=== PATIENT | female | born 1980 | race Two or more races ===

== ENCOUNTER 2019-02-24 | Emergency (ER) | payer OTHER ==
[2019-02-24] MEDS ORDERED: PREGABALIN 100 MG CAPSULE PO SCH ×2 (00:40→10:00)
[2019-02-24] MEDS ORDERED: BACLOFEN 20 MG TABLET PO SCH ×2 (00:40→10:00)
[2019-02-24] MEDS ORDERED: OXYBUTYNIN CHLORIDE 5 MG TABLET PO SCH ×2 (00:41→10:00)
[2019-02-24] MEDS ORDERED: QUETIAPINE FUMARATE 100 MG TABLET PO SCH ×2 (00:42→22:00)
--- NOTE | 2019-02-24 00:52 | ER Document Report ---
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 The patient questions whether or not she may have a UTI, but she denies any fever or vomiting or back pain. The patient also reports some skin breakdown to her sacral region that she has been placing barrier cream upon. She denies any change in her T4 paraplegia neurologic symptoms. No headache or cough or chest pain or difficulty breathing. - Related Data Allergies/Adverse Reactions: No Known Allergies Allergy (Unverified 02/24/19 02:27) Past Medical History - General Information source: Patient - Social History Smoking Status: Unknown if Ever Smoked Frequency of alcohol use: None Drug Abuse: Other - Prior IV drug use, none currently Lives with: Family Family History: Reviewed & Not Pertinent Patient has suicidal ideation: No Patient has homicidal ideation: No Review of Systems - Review of Systems -: Yes All other systems reviewed and negative Physical Exam - Vital signs Vitals: Temp Pulse Resp BP Pulse Ox 97.9 F 55 L 16 126/61 H 100 02/24/19 00:08 02/24/19 00:08 02/24/19 00:08 02/24/19 00:08 02/24/19 00:08 - Notes Notes: PHYSICAL EXAMINATION: GENERAL: Well-appearing, well-nourished and in no acute distress. HEAD: Atraumatic, normocephalic. EYES: Pupils equal round and reactive to light, extraocular movements intact, conjunctiva are normal. ENT: Nares patent, oropharynx clear without exudates. Moist mucous membranes. NECK: Normal range of motion, supple without lymphadenopathy LUNGS: Breath sounds clear to auscultation bilaterally and equal. No wheezes rales or rhonchi. HEART: Regular rate and rhythm without murmurs ABDOMEN: Soft, nontender, nondistended abdomen. No guarding, no rebound. No masses appreciated. Female : deferred Musculoskeletal: Normal range of motion, no pitting or edema. No cyanosis. NEUROLOGICAL: T4 paralysis that is chronic. No acute findings. PSYCH: Normal mood, normal affect. SKIN: Warm, Dry, normal turgor, no rashes or lesions noted. Patient has a stage II decubitus over the sacral region measures about 2 x 2 cm. No active evidence for infection. Course - Re-evaluation Re-evalutation: 02/24/19 00:53 Patient requested and was given her usual medications with Lyrica 150 mg twice daily, baclofen 20 mg 4 times daily, oxybutynin 5 mg 4 times daily and Seroquel 100 mg nightly. 02/24/19 03:50 Patient will be treated with Bactrim antibiotic and will be given a prescription for Bactrim. The patient will have every 6 hour in and out catheterizations to decompress her bladder and barrier cream to her gluteal region. All of this is been passed on to the law enforcement staff that is watching her. Patient is awaiting transfer to another skilled nursing facility in the morning. There is a question as to whether or not she needs to go to [place] skilled nursing for her care given her medical issues. This issue has been discussed in detail with law enforcement also. - Vital Signs Vital signs: Temp Pulse Resp BP Pulse Ox 97.9 F 55 L 16 126/61 H 100 02/24/19 00:08 02/24/19 00:08 02/24/19 00:08 02/24/19 00:08 02/24/19 00:08 - Laboratory Laboratory results interpreted by me: 02/24/19 01:08 Urine Protein 30 H Urine Blood MODERATE H Urine Nitrite POSITIVE H Urine Urobilinogen 2.0 H Ur Leukocyte Esterase MODERATE H Discharge - Discharge Clinical Impression: Paraplegia at T4 level Decubital ulcer Qualifiers: Pressure injury location: sacral region Pressure injury stage: stage 2 Qualified Code(s): L89.152 - Pressure ulcer of sacral region, stage 2 Urinary tract infection Qualifiers: Urinary tract infection type: acute cystitis Hematuria presence: without hematuria Qualified Code(s): N30.00 - Acute cystitis without hematuria Condition: Stable Disposition: HOME, SELF-CARE Instructions: Trimethoprim-Sulfa ([facility]), Urinary Tract Infection ([facility]), Decubitus Ulcer ([facility]) Additional Instructions: Patient will need catheterization for urinary retention performed every 6 hours. The patient will also need barrier cream upon her stage II gluteal decubitus and will need steps taken to prevent further pressure upon the area by having her alternate placing her weight on one side or the other or limiting her time in a wheelchair. Follow-up with skilled nursing nursing staff and practitioner. Prescriptions: Sulfamethoxazole/Trimethoprim [Bactrim Ds Tablet] 1 each PO BID #16 tablet
[2019-02-24 01:33] LABS: APPEARANCE,URINE SLIGHTLY-CLOUDY; BILIRUBIN,URINE NEGATIVE (NEGATIVE); COLOR,URINE YELLOW; GLUCOSE, URINE NEGATIVE (NEGATIVE); KETONES,URINE NEGATIVE (NEGATIVE); LEUKOCYTE ESTERASE,URINE MODERATE (NEGATIVE); NITRITE,URINE POSITIVE (NEGATIVE); PROTEIN,URINE 30 mg/dL (NEGATIVE); URINE SPECIFIC GRAVITY 1.025
[2019-02-24] MEDS ORDERED: CEFTRIAXONE INJ 1000 MG VIAL IM ONE (02:19)
[2019-02-24] MEDS ORDERED: SULFAMETHOXAZOLE/TRIMETHOPRIM 800-160 MG TABLET PO ONE (02:20)
[2019-02-24 07:27] VITALS: BP 112/70
[2019-02-24] MEDS ORDERED: OXYBUTYNIN CHLORIDE 5 MG TABLET PO ONE (07:45)
[2019-02-24] MEDS ORDERED: BACLOFEN 20 MG TABLET PO ONE (07:45)
[2019-02-24] MEDS ORDERED: PREGABALIN 75 MG CAPSULE PO ONE (07:45)
== END 2019-02-24 07:40 | disposition home or self-care (01) ==
LOC: ER
DX: N30.00 Acute cystitis without hematuria (principal); L89.152 Pressure ulcer of sacral region, stage 2; G82.20 Paraplegia, unspecified; S24.102S Unspecified injury at T2-T6 level of thoracic spinal cord, sequela; X58.XXXS Exposure to other specified factors, sequela
CPT/HCPCS: 99283; 96372; 87086; 87088; 81001; 87186; J0696; J3490